=== PATIENT | male | born 2000 | race Caucasian/White ===

== ENCOUNTER 2019-11-24 20:54 | Emergency (ER) | payer OTHER ==
[~2019-11-24] VITALS: Ht 175.3 cm; Wt 76.8 kg
[2019-11-24 21:42] LABS: HEMATOCRIT 40.5 % (42.0-52.0); HEMOGLOBIN 13.6 g/dl (13.5-17.5); MEAN CORPUSCULAR HEMOGLOBIN 29.1 pg (27.0-33.0); MEAN CORPUSCULAR HGB CONC 33.6 g/dl (32.0-36.5); MEAN CORPUSCULAR VOLUME 86.7 fl (80.0-96.0); PLATELET COUNT, AUTOMATED 178 10^3/uL (150-450); RED BLOOD COUNT 4.67 10^6/uL (4.30-6.10)
[2019-11-24 22:10] LABS: AMPHETAMINES LEVEL URINE NEGATIVE (NEGATIVE); BARBITURATES URINE NEGATIVE (NEGATIVE); BENZODIAZEPINES URINE NEGATIVE (NEGATIVE); CANNABINOIDS URINE NEGATIVE (NEGATIVE); COCAINE METABOLITE URINE NEGATIVE (NEGATIVE); METHADONE URINE NEGATIVE (NEGATIVE); OPIATES URINE NEGATIVE (NEGATIVE); PHENCYCLIDINE URINE NEGATIVE (NEGATIVE)
[2019-11-24 22:21] LABS: ACETAMINOPHEN LEVEL < 2.0 UG/ML (10.0-30.0); ALBUMIN 4.3 GM/DL (3.2-5.2); ALT/SGPT 34 U/L (12-78); BILIRUBIN,DIRECT 0.1 MG/DL (0.0-0.2); BILIRUBIN,TOTAL 0.4 MG/DL (0.2-1.0); BLOOD UREA NITROGEN 11 MG/DL (7-18); CALCIUM LEVEL 9.3 MG/DL (8.5-10.1); CARBON DIOXIDE LEVEL 30 MEQ/L (21-32); CHLORIDE LEVEL 106 MEQ/L (98-107); ETHYL ALCOHOL (ETHANOL) < 0.003 % (0.000-0.010); GLUCOSE, FASTING 101 MG/DL (70-100); POTASSIUM SERUM 3.8 MEQ/L (3.5-5.1); SALICYLATE LEVEL < 1.7 MG/DL (5.0-30.0); SODIUM LEVEL 141 MEQ/L (136-145); TOTAL PROTEIN 7.2 GM/DL (6.4-8.2)
--- NOTE | 2019-11-25 05:41 | ECGEPIP ---
[facility] - ED Test Date: 2019-11-24 Pat Name: TRE FOSTER Department: Room: - Gender: Male [employer]im [employer] Operator: : 2000 Requested By: DALILA Byrd Order Number: [id number] Reading MD: Doroteo Jang Measurements Intervals [place] Rate: 68 P: 73 [place]: 141 QRS: 89 QRSD: 92 T: 64 QT: 359 QTc: 384 Interpretive Statements SINUS RHYTHM WITH MARKED SINUS ARRHYTHMIA NO PRIORS FOR COMPARISON Electronically Signed on 11-25-2019 5:41:22 EDT by Doroteo Jang
[2019-11-25 12:00] VITALS: BP 130/76
== END 2019-11-25 12:03 ==
LOC: M ED 20:54
DX: R45.851 Suicidal ideations (principal); Z91.5 Personal history of self-harm
CPT/HCPCS: 80048; 80076; 80307; 84443; 85027; 93005; 99284; G0480; U0002